=== PATIENT | male | born 1980 | race Caucasian/White ===

== ENCOUNTER → 2020-11-11 | Outpatient (CLI) | payer BC ==
--- NOTE | 2020-11-11 17:02 | RAD ---
ADDENDUM #1 Critical result: Findings discussed by phone with at 11/11/2020 5:22 PM. RESULT CODE: (C) ORIGINAL REPORT Site ID: [id number] EXAMINATION: XR CHEST 2V. HISTORY: 40 years Male Reason: SHORT OF AIR, CHEST CONGESTION TIMES 2 DAYS . COMPARISON: None. Findings: There are indeterminate the left perihilar pulmonary nodules seen. The right lung is clear. . The heart size is normal. There is no effusion or pneumothorax. The mediastinum and dago appear unremarkable. Impression: Indeterminate pulmonary nodules seen in the left perihilar region. Further evaluation wit h CT chest is recommended. Electronically signed by: Brian Paige MD (11/11/2020 4:50 PM) [id number]
== END ==
LOC: DXRAD 16:31
PROVIDERS: ATTEND Nurse Practitioner Family
DX: R91.1 Solitary pulmonary nodule (principal); R09.89 Other specified symptoms and signs involving the circulatory and respiratory systems
CPT/HCPCS: 71046